=== PATIENT | male | born 1985 | race Caucasian/White ===

== ENCOUNTER 2019-07-03 01:27 | Emergency (ER) | payer SELFPAY ==
[~2019-07-03] VITALS: Ht 175.3 cm; Wt 63.0 kg
[2019-07-03 01:29] VITALS: BP 136/87
[2019-07-03] MEDS ORDERED: LIDOCAINE-MPF 1%, 5ML ONE (01:48)
[2019-07-03] MEDS ORDERED: CLINDAMYCIN 300 MG CAPSULE PO ONE (02:00)
[2019-07-03] MEDS ORDERED: LIDOCAINE-MPF 1%, 5ML INFIL ONE (02:00)
[2019-07-03] MEDS ORDERED: OXYcodone/APAP 5/325MG TABLET PO ONE (02:00)
[2019-07-03] MEDS ORDERED: CLINDAMYCIN 300 MG CAPSULE ONE (02:10)
[2019-07-03] MEDS ORDERED: OXYcodone/APAP 5/325MG TABLET ONE (02:11)
--- NOTE | 2019-07-03 02:14 | NUR ---
pt medicated per emar. 5 rights addressed. awaiting discharge paperwork at this time
--- NOTE | 2019-07-03 02:28 | NUR ---
Patient/Caregiver given discharge instructions and they have confirmed that they understand the instructions. Patient ambulatory with steady gait.
== END 2019-07-03 02:30 | disposition home or self-care (01) ==
LOC: ED 02:26
DX: L03.113 Cellulitis of right upper limb (principal); F17.200 Nicotine dependence, unspecified, uncomplicated; Z72.89 Other problems related to lifestyle
CPT/HCPCS: 10060; 99283

== ENCOUNTER 2019-07-09 14:58 | Emergency (ER) | payer OTHER ==
[~2019-07-09] VITALS: Ht 177.8 cm; Wt 56.7 kg
[2019-07-09 15:03] VITALS: BP 138/94
--- NOTE | 2019-07-09 16:23 | NUR ---
[id number]
--- NOTE | 2019-07-09 16:43 | NUR ---
[id number]
--- NOTE | 2019-07-09 16:58 | NUR ---
[id number]
== END 2019-07-09 17:01 ==
LOC: ED 16:55
DX: L02.511 Cutaneous abscess of right hand (principal); Z53.21 Procedure and treatment not carried out due to patient leaving prior to being seen by health care provider